=== PATIENT | female | born 1970 | race Hispanic/Latino ===

== ENCOUNTER 2018-11-02 20:09 | Emergency (ER) | payer BC, OTHER ==
[2018-11-02] MEDS ORDERED: IBUPROFEN 600 MG TABLET ONE (20:56)
== END 2018-11-02 21:45 | disposition home or self-care (01) ==
LOC: EDH 20:09
DX: S83.8X2A Sprain of other specified parts of left knee, initial encounter (principal); Z90.710 Acquired absence of both cervix and uterus; X50.1XXA Overexertion from prolonged static or awkward postures, initial encounter; Y93.89 Activity, other specified; Y92.69 Other specified industrial and construction area as the place of occurrence of the external cause; Y99.8 Other external cause status
CPT/HCPCS: 73562

== ENCOUNTER 2022-11-08 11:56 | Emergency (ER) | payer OTHER ==
[~2022-11-08] VITALS: Ht 160 cm; Wt 95.3 kg
[2022-11-08 12:16] LABS: BASOPHILS % (AUTO) 0.7 % (0.0-5.0); EOSINOPHILS % (AUTO) 4.9 % (0.0-8.0); HEMATOCRIT 40.2 % (36-48); LYMPHOCYTES % (AUTO) 37.4 % (21.0-51.0); MEAN CORPUSCULAR HEMOGLOBIN 26.7 pg (27.0-33.0); MEAN CORPUSCULAR HGB CONC 30.8 g/dL (32.0-36.0); MEAN CORPUSCULAR VOLUME 86.6 fL (79-99); MONOCYTES % (AUTO) 7.7 % (3.0-13.0); PLATELET COUNT (AUTO) 213 K/uL (130-400); RED BLOOD CELL COUNT(AUTO) 4.64 MIL/uL (4.00-5.50); RED CELL DISTRIBUTION WIDTH 14.3 % (11.0-15.5); WHITE BLOOD COUNT (AUTO) 9.6 K/uL (4.8-10.8)
[2022-11-08 12:25] LABS: CARBON DIOXIDE 31 mmol/L (21-32); CHLORIDE 106 mmol/L (101-111); CREATININE 0.7 mg/dL (0.5-1.5); GLOMERULAR FILTR. RATE CALC 105 mL/min (>90); GLUCOSE,RANDOM 93 mg/dL (70-105); POTASSIUM 3.9 mmol/L (3.5-5.1); SODIUM SERUM 140 mmol/L (136-145); UREA NITROGEN, BLOOD 15 mg/dL (7-18)
[2022-11-08 12:30] LABS: ALANINE AMINOTRANSFERASE 44 U/L (12-78); ALBUMIN 3.4 g/dL (3.5-5.0); ASPARTATE AMINOTRANSFERASE 22 U/L (10-37); TOTAL PROTEIN, SERUM 7.4 g/dL (6.0-8.3)
[2022-11-08] MEDS ORDERED: ACETAMINOPHEN 500 MG TABLET PO ONE (13:00)
[2022-11-08] MEDS ORDERED: ASPIRIN 325MG TAB PO ONE (13:00)
[2022-11-08] MEDS ORDERED: NITROGLYCERIN 1GM OINT 1 INCH/1GM TD ONE (13:00)
[2022-11-08] MEDS ORDERED: IOHEXOL 350 MG/ML 100ML INFUS..BTL IV ONE (13:56)
[2022-11-08 14:18] LABS: APPEARANCE,URINE CLEAR (CLEAR); BILIRUBIN,URINE NEGATIVE (NEGATIVE); COLOR,URINE LIGHT-YELLOW (YELLOW); GLUCOSE, URINE (UA) NEGATIVE (NEGATIVE); KETONES,URINE NEGATIVE (NEGATIVE); LEUKOCYTE ESTERASE ,URINE 500 Leu/uL (NEGATIVE); NITRATE,URINE NEGATIVE (NEGATIVE); PROTEIN,URINE NEGATIVE (NEGATIVE); UROBILINOGEN,URINE 0.2 mg/dL (0.2-1.0)
[2022-11-08 14:24] LABS: BACTERIA,URINE RARE /HPF (None Seen); MUCUS,URINE RARE LPF (None Seen); SQUAMOUS EPITHELIAL CELL,UR FEW /HPF (0-2)
[2022-11-08] MEDS ORDERED: CEFTRIAXONE 1G VIAL IVPB ONE (16:30)
[2022-11-08] MEDS ORDERED: MACR100 PO (16:53)
[2022-11-08 17:02] VITALS: BP 110/58
== END 2022-11-08 17:05 | disposition home or self-care (01) ==
LOC: EDH 11:56
DX: N30.00 Acute cystitis without hematuria (principal); R07.89 Other chest pain; R06.02 Shortness of breath; E11.9 Type 2 diabetes mellitus without complications; Z90.710 Acquired absence of both cervix and uterus
CPT/HCPCS: 99285; 93970; 96365; 71270; 71045; 84484 ×2; 80053; 85025; 85378; 87088; 81001; 36415; 93005; J0696; Q9967

== ENCOUNTER 2023-02-04 19:29 | Emergency (ER) | payer OTHER ==
[~2023-02-04] VITALS: Ht 160 cm; Wt 95.3 kg
[~2023-02-04 19:29] MED LIST: MACR100 PO
[2023-02-04 19:37] VITALS: BP 168/91; PULSE 77; RESP 18; O2SAT 98
[2023-02-04] MEDS ORDERED: CYCLOBENZAPRINE HCL 10 MG TABLET PO ONE (21:00)
[2023-02-04] MEDS ORDERED: KETOROLAC 30MG VIAL (30MG/ML) IM ONE (21:00)
[2023-02-04] MEDS ORDERED: IBUP-2070 PO (21:01)
[2023-02-04] MEDS ORDERED: CYCL10TA16 PO (21:01)
[2023-02-04 21:56] LABS: APPEARANCE,URINE CLEAR (CLEAR); BILIRUBIN,URINE NEGATIVE (NEGATIVE); COLOR,URINE COLORLESS (YELLOW); GLUCOSE, URINE (UA) NEGATIVE (NEGATIVE); KETONES,URINE NEGATIVE (NEGATIVE); LEUKOCYTE ESTERASE ,URINE 25 Leu/uL (NEGATIVE); NITRATE,URINE NEGATIVE (NEGATIVE); PH,URINE 6.5 (5.0-8.0); PROTEIN,URINE NEGATIVE (NEGATIVE); UROBILINOGEN,URINE 0.2 mg/dL (0.2-1.0)
[2023-02-04 21:57] LABS: ADD UA MICROSCOPIC YES; RBC,URINE 0-1 /HPF (0-1); SQUAMOUS EPITHELIAL CELL,UR RARE /HPF (0-2); WBC,URINE 0-1 /HPF (0-1)
[2023-02-04] MEDS ORDERED: CEPH500B PO (22:18)
== END 2023-02-04 22:38 | disposition home or self-care (01) ==
LOC: EDH 19:29
DX: N39.0 Urinary tract infection, site not specified (principal); M54.32 Sciatica, left side; E11.9 Type 2 diabetes mellitus without complications; Z90.710 Acquired absence of both cervix and uterus; Z79.899 Other long term (current) drug therapy
CPT/HCPCS: 99283; 81001; 96372; J1885

== ENCOUNTER 2023-07-24 17:39 | Emergency (ER) | payer OTHER ==
[~2023-07-24] VITALS: Ht 160 cm; Wt 93.0 kg
[~2023-07-24 17:39] MED LIST changes: +CEPH500B PO; +CYCL10TA16 PO; +IBUP-2070 PO
[2023-07-24] MEDS: 0.9%NACL 1000ML 1,000 ML IV ONE (21:00)
[2023-07-24 21:30] VITALS: BP 130/70; PULSE 78; RESP 18; O2SAT 99
[2023-07-24] MEDS: KETAMINE 50MG/ML SYRINGE 50 MG/ML DISP.SYRIN IV ONE (21:45)
[2023-07-24] MEDS: KETAMINE HCL 100 MG/ML 5ML VIAL IJ ONE (22:06)
== END 2023-07-24 23:34 | disposition home or self-care (01) ==
LOC: EDH 17:39
DX: S53.121A Posterior subluxation of right ulnohumeral joint, initial encounter (principal); E11.9 Type 2 diabetes mellitus without complications; Z79.899 Other long term (current) drug therapy; Z90.710 Acquired absence of both cervix and uterus; W18.39XA Other fall on same level, initial encounter; Y93.89 Activity, other specified; Y92.89 Other specified places as the place of occurrence of the external cause; Y99.8 Other external cause status
CPT/HCPCS: 99285; 24600; 96360; 96361; 73080; 73070; J3490

== ENCOUNTER 2024-10-20 10:06 | Emergency (ER) | payer SELFPAY ==
[~2024-10-20] VITALS: Ht 157.5 cm; Wt 99.8 kg
[2024-10-20 10:39] LABS: BASOPHILS # (AUTO) 0.08 K/uL (0.00-0.20); BASOPHILS % (AUTO) 0.9 % (0.0-5.0); EOSINOPHILS % (AUTO) 8.1 % (0.0-8.0); IMMATURE GRANULOCYTE ABSOLUTE 0.03 K/uL (0-1); LYMPHOCYTES # (AUTO) 2.6 K/uL (1.0-4.8); LYMPHOCYTES % (AUTO) 29.8 % (21.0-51.0); MEAN CORPUSCULAR HEMOGLOBIN 26.9 pg (27.0-33.0); MEAN CORPUSCULAR HGB CONC 30.8 g/dL (32.0-36.0); MEAN CORPUSCULAR VOLUME 87.5 fL (79-99); MONOCYTES # (AUTO) 0.5 K/uL (0.1-1.0); MONOCYTES % (AUTO) 6.1 % (3.0-13.0); NEUTROPHILS # (AUTO) 4.7 K/uL (1.8-7.7); NEUTROPHILS % (AUTO) 54.8 % (40.0-77.0); PLATELET COUNT (AUTO) 222 K/uL (130-400); RED BLOOD CELL COUNT(AUTO) 4.57 MIL/uL (4.00-5.50); RED CELL DISTRIBUTION WIDTH 13.3 % (11.0-15.5); WHITE BLOOD COUNT (AUTO) 8.6 K/uL (4.8-10.8)
--- NOTE | 2024-10-20 10:46 | ERN ---
General Chief Complaint: Shoulder Injury/Pain Stated Complaint: SHOULDER PAIN Time Seen by MD: 10:07 Time Seen by Midlevel: 10:07 Source: patient History of Present Illness Initial Comments Patient is a morbidly obese 54-year-old female presenting to the emergency department with pain to her left shoulder that radiates your the left side of her chest and down her left arm. She does state proximally one week ago she injured her left shoulder moving a large piece of furniture. She believes this may be related to it however would like further evaluation given that it radiates to her chest. Additionally, she states she has been having leg swelling to bilateral lower extremities. She already spoke to her primary care doctor regarding this and was put on hydrochlorothiazide but wanted further evaluation. Otherwise the patient has no other complaints Allergies: Coded Allergies: No Known Drug Allergies (Unverified Allergy, Unknown, 11/02/18) Home Meds Active Scripts Cephalexin Monohydrate (Keflex) 500 Mg Cap, 500 MG PO QID for 7 Days, #28 CAP Prov:COLLEEN SHAWP 02/04/23 Ibuprofen (Ibuprofen) 600 Mg Tablet, 600 MG PO Q6H PRN for PAIN, #30 TAB Prov:COLLEEN SHAWP 02/04/23 Cyclobenzaprine HCl (Flexeril) 10 Mg Tab, 10 MG PO TID for 5 Days, #15 TAB Prov:COLLEEN SHAW [employer] 02/04/23 Nitrofurantoin/Nitrofuran Mac (Macrobid) 100 Mg Cap, 1 CAP PO BID for 7 Days, #14 CAP 0 Refills Prov:JULIO CESAR ABDI MD 11/08/22 Past Medical History Past Medical History: Diabetes-Type II, Sciatica Past Surgical History: Hysterectomy ROS Dictation CONSTITUTIONAL: Negative except for HPI HEAD/FACE: Negative except for HPI EENT: Negative except for HPI RESPIRATORY: Negative except for HPI GASTROINTESTINAL/ABDOMINAL: Negative except for HPI GENITOURINARY: Negative except for HPI MUSCULOSKELETAL: Negative except for HPI INTEGUMENTARY: Negative except for HPI NEUROLOGICAL/PSYCH: Negative except for HPI HEMATOLOGIC/LYMPHATIC: Negative except for HPI All Systems Negative, Except as noted above. 13 point review of systems assessed and all negative except for above. Physical Exam Physical Exam Dictation Vital Signs reviewed General Appearance: Alert, oriented x 3, no acute distress, well developed, nourished. Head and Face: non-traumatic. Eyes: PERRL, pink conjunctivas, eyelid no trauma, anterior chamber with arcus senilis. Ears: Pinnas intact and no signs of trauma or erythema ear canals clear and no discharge TM no erythema Nose: No discharge, no bleeding. Oropharynx: Mouth normal, tongue pink, pharynx clear,no erythema, tonsils no exudates, no abscesses noted, mucous membrane moist Neck: Supple, non-tender, no thyromegaly, no masses, no JVD, no bruits Breast:Deferred Chest:No tenderness, no crepitus, no paradoxical movement, no retractions Lungs:Clear, well-ventilated, symmetric, no rales, no wheezing, no rhonchi, no stridor, good breath sounds bilaterally Heart: Regular rate, regular rhythm, no murmur, no gallops Vascular: no peripheral edema, Abdomen: Soft, positive bowel sounds, nondistended, no guarding, nontender, no rebound, no masses no hepatomegaly, no splenomegaly, no Pino's sign, no hernias. Rectal: Deferred Genital: Deferred Neurological: Normal speech, motor function intact, sensory function intact Musculoskeletal: Neck nontender, full range of motion, back nontender, full range of motion, Extremities: nontender, full range of motion Skin: Color pink, dry, no turgor, no rash, no lacerations, no abrasions, no contusions. Lymphatic: Deferred Results Laboratory and Microbiology Lab and Micro Result Laboratory Tests Test 10/20/24 10:28 White Blood Count 8.6 K/uL (4.8-10.8) Red Blood Count 4.57 MIL/uL (4.00-5.50) Hemoglobin 12.3 g/dL (12.0-16.0) Hematocrit 40.0 % (36-48) Mean Corpuscular Volume 87.5 fL (79-99) Mean Corpuscular Hemoglobin 26.9 pg (27.0-33.0) L Mean Corpuscular Hemoglobin Concent 30.8 g/dL (32.0-36.0) L Red Cell Distribution Width 13.3 % (11.0-15.5) Platelet Count 222 K/uL (130-400) Mean Platelet Volume 10.8 fL (7.5-10.5) H Immature Granulocyte % (Auto) 0.3 % (0-1) Neutrophils (%) (Auto) 54.8 % (40.0-77.0) Lymphocytes (%) (Auto) 29.8 % (21.0-51.0) Monocytes (%) (Auto) 6.1 % (3.0-13.0) Eosinophils (%) (Auto) 8.1 % (0.0-8.0) H Basophils (%) (Auto) 0.9 % (0.0-5.0) Neutrophils # (Auto) 4.7 K/uL (1.8-7.7) Lymphocytes # (Auto) 2.6 K/uL (1.0-4.8) Monocytes # (Auto) 0.5 K/uL (0.1-1.0) Eosinophils # (Auto) 0.70 K/uL (0.00-0.70) Basophils # (Auto) 0.08 K/uL (0.00-0.20) Absolute Immature Granulocyte (auto 0.03 K/uL (0-1) Nucleated Red Blood Cells 0.0 % (0.0-0.19) Red Blood Cell Morphology See comments Sodium Level 141 mmol/L (136-145) Potassium Level 3.6 mmol/L (3.5-5.1) Chloride Level 106 mmol/L (101-111) Carbon Dioxide Level 32 mmol/L (21-32) Blood Urea Nitrogen 10 mg/dL (7-18) Creatinine 0.7 mg/dL (0.5-1.0) Glomerular Filtration Rate Calc 103 mL/min (>90) Random Glucose 112 mg/dL (70-105) H Total Calcium 9.1 mg/dL (8.5-10.1) Magnesium Level 2.00 mg/dL (1.80-2.40) Total Creatine Kinase 35 U/L (21-232) Troponin I High Sensitivity < 4 ng/L (4-50) L B-Type Natriuretic Peptide 24 pg/mL (0-100) MDM MDM: 54-year-old female presenting to the ER with shoulder pain that radiates to the left side of her chest. Cardiac workup was initiated to rule out an acute coronary syndrome. Physical examination reveals reproducible left shoulder pain with movement. Based on physical examination and history it appears the pain is musculoskeletal in nature however I obtain basic blood work. CBC and chemistries are unremarkable. Cardiac enzymes are negative. EKG does not show any evidence of a STEMI. Chest x-ray is normal. Left shoulder x-ray is normal. We will discharged home on supportive management. Patient requested I provide an albuterol prescription since she is unable to see her primary care doctor soon. Differential diagnosis: Musculoskeletal pain, acute coronary syndrome, fracture, arthritis There are no social concerns with this patient. Prescription drug management Prescriptions will include: Toradol, Robaxin, albuterol inhaler Medical management and examination interpretation discussions were had by me with other qualified healthcare professionals as indicated for the patient's care. ED Course Orders Procedure Category Date Status Time 12 Lead Ekg Tracing- EKG 10/20/24 Logged Technical 10:12 Cbc With Differential LAB 10/20/24 Complete 10:12 Basic Metabolic Panel LAB 10/20/24 Complete 10:12 B-Type Natriuretic LAB 10/20/24 Complete Peptide 10:12 Creatine Kinase, Total LAB 10/20/24 Complete 10:12 Magnesium LAB 10/20/24 Complete 10:12 Chest 1vw RAD 10/20/24 Taken 10:12 Troponin I High LAB 10/20/24 Complete Sensitivity 10:12 Shoulder Comp 2+Vws Lt RAD 10/20/24 Resulted 10:18 Ketorolac PHA 10/20/24 Complete Tromethamine 15mg/Ml 10:30 Current Medications Medications (Trade) Dose Ordered Sig/Cata Route PRN Reason Start Time Stop Time Status Last Admin Dose Admin Ketorolac Tromethamine (toRADol) 15 mg ONCE ONCE IM 10/20/24 10:30 10/20/24 10:31 DC 10/20/24 10:57 Vital Signs Date Time Temp Pulse Resp B/P (MAP) Pulse Ox O2 Delivery O2 Flow Rate FiO2 10/20/24 10:16 98.1 96 16 128/68 97 Room Air* 0 21 10/20/24 10:07 98.1 96 16 128/68 97 Room Air [place] [id number] [address] IMAGING REPORT Signed PATIENT: NICKY LYNN MR#: [id number] : 1970 SEX: F AGE: 54 LOCATION: [facility] ORDER [id number] STATUS: REG ER REPORT#: [id number] SERVICE 1018 REASON: pain with rom ORDERING PHYSICIAN: LETITIA CASTILLO PROCEDURE: SHOL 2V LT - SHOULDER COMP 2+VWS LT Exam Type: SHOULDER COMP 2+VWS LT Clinical Information: pain with rom Comparison: None FINDINGS: The examination is unremarkable. Specifically, the glenohumeral and acromioclavicular joints are preserved. Visualized portions of the humerus, the scapula, and the clavicle as well as the upper ribcage are unremarkable. No pulmonary pathology is noted in the visualized portions of the upper lobe. The soft tissues are preserved. There are no other gross abnormalities. IMPRESSION: NORMAL EXAMINATION. DICTATED BY: YOGESH WARREN MD DATE: 10/20/24 111 ELECTRONICALLY SIGNED BY: YOGESH WARREN MD DATE: 10/20/24 112 HEART Score Response (Comments) Value History: Low suspicion (0) 0 EKG: Normal 0 Age: 45-65yrs (+1) 1 Risk Factors: 1-2 risk factors (+1) 1 Initial Troponin: Normal limit (0) 0 HEART Score Risk: Low Risk for MACE (1-3) Total 2 DX & DISP Disposition: Discharge Departure Impression: Primary Impression: Left shoulder strain Additional Impression: Non-cardiac chest pain Condition: Stable Scripts Albuterol Sulfate (Albuterol Sulfate) 2.5 Mg/0.5 Ml Vial.neb 2.5 MG IH Q6H for wheezing/sob, #20 INH 0 Refills Prov: LETITIA CASTILLO 10/20/24 Methocarbamol (Robaxin) 750 Mg Tab 1 TAB PO BID for 7 Days, #14 TAB 0 Refills Prov: LETITIA CASTILLO 10/20/24 Ketorolac Tromethamine (Ketorolac Tromethamine) 10 Mg Tablet 1 TAB PO TID for pain for 5 Days, #15 TAB 0 Refills Prov: LETITIA CASTILLO 10/20/24 Referrals: SELF,REFERRAL (PCP) Time of Disposition: 11:39 I have reviewed the case, and I agree with, Diagnosis and Plan I performed the substantive portion of the visit. I have reviewed and personally made and approve the management plan that is documented in the note by myself or the LYLY. I acknowledge for responsibility for the patient's management plan. LETITIA CASTILLO October 20, 2024 10:46
[2024-10-20 10:51] LABS: CREATININE 0.7 mg/dL (0.5-1.0); POTASSIUM 3.6 mmol/L (3.5-5.1)
[2024-10-20] MEDS: ketOROlac 15MG/ML VIAL (15MG/ML) IM ONE (10:57)
[2024-10-20 11:03] LABS: B-TYPE NATRIURETIC PEPTIDE 24 pg/mL (0-100)
--- NOTE | 2024-10-20 11:22 | HMCIMG ---
Exam Type: SHOULDER COMP 2+VWS LT Clinical Information: pain with rom Comparison: None FINDINGS: The examination is unremarkable. Specifically, the glenohumeral and acromioclavicular joints are preserved. Visualized portions of the humerus, the scapula, and the clavicle as well as the upper ribcage are unremarkable. No pulmonary pathology is noted in the visualized portions of the upper lobe. The soft tissues are preserved. There are no other gross abnormalities. IMPRESSION: NORMAL EXAMINATION.
[2024-10-20] MEDS ORDERED: KETO10TA2 PO (11:39)
[2024-10-20] MEDS ORDERED: METH-662 PO (11:39)
--- NOTE | 2024-10-20 11:39 | HMCIMG ---
Exam Type: CHEST 1VW Clinical Information: sob Comparison: None Findings: The lungs are clear of infiltrates. The heart is normal in size. The bony and soft tissue structures of the chest are unremarkable. Impression: Clear lungs.
[2024-10-20] MEDS ORDERED: AUD IH (11:40)
[2024-10-20 11:58] VITALS: BP 103/62; PULSE 83; RESP 16; TEMP 98.1; O2SAT 96
--- NOTE | 2024-10-20 13:24 | EKG ---
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
== END 2024-10-20 12:00 | disposition home or self-care (01) ==
LOC: EDH 10:06
DX: S46.812A Strain of other muscles, fascia and tendons at shoulder and upper arm level, left arm, initial encounter (principal); R07.89 Other chest pain; E11.9 Type 2 diabetes mellitus without complications; E66.01 Morbid (severe) obesity due to excess calories; Z90.710 Acquired absence of both cervix and uterus; X58.XXXA Exposure to other specified factors, initial encounter; Y93.89 Activity, other specified; Y92.89 Other specified places as the place of occurrence of the external cause; Y99.8 Other external cause status
CPT/HCPCS: 99285; 71045; 82550; 83735; 84484; 80048; 83880; 85025; 36415; 73030; 96372; 93005; J1885